=== PATIENT | female | born 1970 | race Caucasian/White ===

== ENCOUNTER 2023-09-23 08:33 | Outpatient (AMB) | payer OTHER, SELFPAY ==
--- NOTE | 2023-09-23 09:19 | MHC.OFFWIV ---
Intake Vital Signs 09/23/23 09:26 Height 5 ft 2 in Weight 185 lb BMI 33.8 BP 120/68 Blood Pressure Location Lt brachial Position Sitting Pulse 92 Pulse Source Pulse Oximeter Temp 97.7 F Temp Source Temporal Artery Scan Pulse Oximetry (%) 97 Oxygen Delivery Method Room Air Intake Visit Reasons: EST/congestion/cough([phone]) Intake Note: pt is here today for congestion cough started 3 weeks ago Patient Tobacco Use Status: Former Tobacco user Allergies No Known Allergies Allergy (Verified 09/23/23 09:19) Do you need a note to return to daycare/school/sports/work: No HPI HPI Comments History of Present Illness Details This is a 53-year-old female who presents to the office today for sick visit. Patient complaining of nasal/sinus congestion with rhinorrhea with green/yellow nasal discharge x 3 weeks. Her symptoms started to improve but then worsened again. She also reports a dry cough. She denies any shortness a breath or wheezing. She denies any fevers or chills. PFS Social History Patient Tobacco Use Status: Former Tobacco user Review of Systems Const All systems reviewed & are unremarkable except as noted in HPI and below Reports no additional complaints Eyes Reports no additional complaints ENT Reports no additional complaints Card Reports no additional complaints Resp Reports no additional complaints GI Reports no additional complaints Reports no additional complaints Musc Reports no additional complaints Skin/Breast Reports system reviewed and no additional complaints, except as documented Neuro Reports no additional complaints Psych Reports no additional complaints Endo Reports no additional complaints Calderon/Lymph Reports no additional complaints Aller/Immun Reports no additional complaints Physical Exam Vital Signs: Last Vital Signs Temp 97.7 F 09/23/23 09:26 Pulse 92 09/23/23 09:26 BP 120/68 09/23/23 09:26 Pulse Ox 97 09/23/23 09:26 Oxygen Delivery Method Room Air 09/23/23 09:26 BMI result Body Mass Index 33.8 Const Other: Vital signs reviewed. Constitutional: Non-toxic appearing. No acute distress. Well-developed and well-nourished. HEENT: Normocephalic and atraumatic. Skin: Warm and dry. No rashes or lesions noted. Neck: Full and painless range of motion. No cervical lymphadenopathy. Cardio: Regular rate and rhythm. No murmurs, gallops, or rubs. No lower extremity edema. No JVD. Pulmonary: No respiratory distress. No accessory muscle usage. Clear to auscultation bilaterally without wheezing, crackles, or rhonchi. Gastrointestinal: Soft, nontender, and nondistended in all 4 quadrants. Musculoskeletal: Normal range of motion in joints throughout the body. No deformity or other signs of injury. Neuro: Alert and oriented x4. Cranial nerves 2-12 grossly intact. No focal deficits appreciated. Psych: Normal mood and affect. Assessment & Plan Assessment & Plan (1) Acute bacterial rhinosinusitis: Code(s): J01.90 - Acute sinusitis, unspecified; B96.89 - Other specified bacterial agents as the cause of diseases classified elsewhere (2) Cough: Code(s): R05.9 - Cough, unspecified Plan This is a 53-year-old female who presented to the office complaining of nasal/sinus congestion and rhinorrhea with green/yellow nasal discharge as well as a dry cough x3 weeks. Patient states her symptoms improved but then worsened again. Her history and physical are consistent with acute bacterial rhinosinusitis given symptoms greater than 10 days as well as double worsening of her symptoms. Patient sent on p.o. amoxicillin/clavulanate 875/125 mg twice daily x5 days as well as patent benzonatate mg 3 times daily as needed for cough. Recommended symptomatic management including vyae-odn-ecddawb decongestants such as pseudoephedrine or phenylephrine as well as nasal saline spray or fluticasone nasal spray. Patient was instructed to follow-up here or proceed directly to the emergency room if she were to develop persistent or worsening symptoms. Patient verbalizes her understanding and she is in agreement with the plan. Medications: New amoxicillin-pot clavulanate 875-125 mg 1 tab PO BID 10 tabs 0RF benzonatate 100 mg PO TID PRN 14 caps 0RF cough Coding Level of Care Code Est Pt Level 3 (85907) Diagnoses Acute bacterial rhinosinusitis J01.90; B96.89 Cough R05.9
[2023-09-23 09:26] VITALS: BP 120/68; PULSE 92; TEMP 36.5; O2SAT 97; BMI 33.8
== END 2023-09-23 10:06 | disposition home or self-care (01) ==
PROVIDERS: Visit Provider Physician Assistant Medical
DX: J01.90 Acute sinusitis, unspecified (principal); B96.89 Other specified bacterial agents as the cause of diseases classified elsewhere; R05.9 Cough, unspecified
CPT/HCPCS: 99213